=== PATIENT | female | born 1995 | race African-American/Black ===

== ENCOUNTER 2018-03-08 15:57 | Emergency (ER) | payer OTHER ==
--- NOTE | 2018-03-08 16:37 | EDPHY ---
H & P Stated Complaint: dizziness, weak, RIVERA x 3 wks, per PCP WBC low Time Seen by Provider: 03/08/18 16:37 HPI/ROS: CHIEF COMPLAINT: Fatigue, weakness, headache and chest pain HISTORY OF PRESENT ILLNESS: Patient is referred to the ED for evaluation of 3 weeks of fatigue and weakness. She was initially seen at [facility] and diagnosed with a slight leukopenia. She was seen in follow-up in continued to have leukopenia. She was referred to [facility]. The patient comes to the ED today because she has developed some chest heaviness and dyspnea. She denies any sore throat, fever, abdominal pain or swollen lymph nodes. The patient denies significant past medical history. She takes no regular medications. She has no history of asymmetric calf pain or swelling. REVIEW OF SYSTEMS: A comprehensive 10 point review of systems is otherwise negative aside from elements mentioned in the history of present illness. Source: Patient - Personal History LMP (Females 10-55): Now Current Tetanus/Diphtheria Vaccine: Unsure Current Tetanus Diphtheria and Acellular Pertussis (TDAP): Unsure - Medical/Surgical History Hx Asthma: No Hx Chronic Respiratory Disease: No Hx Diabetes: No Hx Cardiac Disease: No Hx Renal Disease: No Hx Cirrhosis: No Hx Alcoholism: No Hx HIV/AIDS: No Hx Splenectomy or Spleen Trauma: No Other PMH: denies - Social History Smoking Status: Never smoked - Physical Exam Exam: General Appearance: Alert, no distress Eyes: Pupils equal and round no pallor or injection ENT, Mouth: Mucous membranes moist Respiratory: There are no retractions, lungs are clear to auscultation Cardiovascular: Regular rate and rhythm Gastrointestinal: Abdomen is soft and nontender, no masses, bowel sounds normal Neurological: A&O, normal motor function, normal sensory exam, normal cranial nerves Skin: Warm and dry, no rashes Musculoskeletal: Neck is supple nontender, no palpable adenopathy Extremities: symmetrical, full range of motion Psychiatric: Patient is oriented X 3, there is no agitation Constitutional: Initial Vital Signs Temperature (C) 36.9 C 03/08/18 16:10 Heart Rate 80 03/08/18 16:10 Respiratory Rate 16 03/08/18 16:10 Blood Pressure 117/72 03/08/18 16:10 O2 Sat (%) 99 03/08/18 16:10 O2 Delivery Mode Room Air Allergies/Adverse Reactions: No Known Allergies Allergy (Verified 03/08/18 16:16) Home Medications: Medication Instructions Recorded NK [No Known Home Meds] 03/08/18 Medical Decision Making - Diagnostics EKG Interpretation: EKG: Complete interpretation has been separately recorded in the [facility] archive. Summary impression: Sinus rhythm, rate 83 Imaging Results: Imaging Impressions Chest X-Ray 03/08/18 17:35 Impression: Normal chest. ED Course/Re-evaluation: I reviewed the patient's outpatient labs which do demonstrate a mild leukopenia , atypical lymphocytes and a microcytosis. The patient presents to the ED with symptoms which appear to be most suggestive of a low-grade viral infection. She is not neutropenic. The patient's chest x- ray demonstrates no evidence of acute disease. The patient's D-dimer is negative. She is not a critically anemic. Patient's Monospot test is negative. Her electrolytes liver function tests remain within normal limits. This point time I see no indication of an obvious chest emergency. She is hemodynamically stable. I have instructed the patient to continue to rest and use Tylenol as needed for management of her symptoms. She is scheduled to follow up with [facility] for further workup of her leukopenia which I feel is reasonable. The patient will be instructed to return to the ED for markedly worsening symptoms or other concerns. Differential Diagnosis: Differential diagnosis considered includes mononucleosis, dehydration, viral illness, metabolic derangement, hepatitis, pneumonia, pulmonary embolism, pericarditis - Data Points Laboratory Results: Laboratory Results 03/08/18 16:55 03/08/18 03/08/18 03/08/18 17:00 16:55 16:55 D-Dimer < 0.27 ug/mLFEU ug/mLFEU (0.00-0.50) Sodium Potassium Chloride Carbon Dioxide Anion Gap BUN Creatinine Estimated GFR Glucose Calcium Total Bilirubin Conjugated Bilirubin Unconjugated Bilirubin AST ALT Alkaline Phosphatase Troponin I < 0.012 ng/mL ng/mL (0.000-0.034) Total Protein Albumin Beta HCG, Qual NEGATIVE Monoscreen NEGATIVE (NEGATIVE) 03/08/18 16:55 D-Dimer Sodium 140 mEq/L mEq/L (135-145) Potassium 4.0 mEq/L mEq/L (3.3-5.0) Chloride 104 mEq/L mEq/L (97-110) Carbon Dioxide 26 mEq/l mEq/l (22-31) Anion Gap 10 mEq/L mEq/L (8-16) BUN 11 mg/dL mg/dL (7-23) Creatinine 0.7 mg/dL mg/dL (0.6-1.0) Estimated GFR > 60 Glucose 109 mg/dL H mg/dL (70-100) Calcium 9.5 mg/dL mg/dL (8.5-10.4) Total Bilirubin 0.6 mg/dL mg/dL (0.1-1.4) Conjugated Bilirubin 0.0 mg/dL mg/dL (0.0-0.5) Unconjugated Bilirubin 0.6 mg/dL mg/dL (0.0-1.1) AST 27 IU/L IU/L (14-46) ALT 30 IU/L IU/L (9-52) Alkaline Phosphatase 43 IU/L IU/L (38-126) Troponin I Total Protein 7.0 g/dL g/dL (6.3-8.2) Albumin 4.1 g/dL g/dL (3.5-5.0) Beta HCG, Qual Monoscreen Departure - Departure Disposition: Home, Routine, Self-Care Clinical Impression: Fatigue Condition: Good Instructions: Fatigue (ED) Additional Instructions: 1. I recommend Tylenol and ibuprofen for your pain. 2. The blood testing in the emergency department today is unrevealing. You have a slightly decreased white blood cell count which is nonspecific and can be seen with some viral infections. 3. There is no evidence of a heart attack, blood clot, collapsed lung or other serious cardiac or pulmonary condition. 4. Please follow-up with your primary care provider and [facility] as scheduled. 5. Please return to the ED for markedly worsening symptoms or other concerns. Referrals: Angel Purcell MD [Primary Care Provider] - As per Instructions
[2018-03-08 18:35] VITALS: BP 110/79
== END 2018-03-08 19:01 | disposition home or self-care (01) ==
DX: R53.83 Other fatigue (principal); R53.1 Weakness; R07.9 Chest pain, unspecified; R51 Headache

== ENCOUNTER → 2018-03-20 | Outpatient (CLI) | payer OTHER | LOC: FIMAGING 16:22 | PROVIDERS: ATTEND Internal Medicine Hematology & Oncology | DX: R16.1 Splenomegaly, not elsewhere classified (principal) ==